=== PATIENT | female | born 1970 | race Caucasian/White ===

== ENCOUNTER 2021-05-03 19:48 | Emergency (ER) | payer BC ==
--- NOTE | 2021-05-03 20:20 | ED ---
General Adult HPI - General Source: patient, RN notes reviewed, old records reviewed Mode of arrival: ambulatory Limitations: no limitations <Dashawn Villeda - Last Filed: 05/03/21 20:46> <Dashawn Wellington - Last Filed: 05/04/21 00:46> - General Chief complaint: Chest Pain Stated complaint: Chest Pain Time Seen by Provider: 05/03/21 19:55 - History of Present Illness Initial comments: Is a 50-year-old female with past medical history significant for smoking and she states she is borderline diabetic. Patient states she started having upper left back pain that radiated around the shoulder into the chest but it only hurts if she takes a deep breath or cough. Patient states if she breathes normally she has no pain whatsoever. Patient states this started a few days ago. Patient denies any fever chills or cough. Patient denies having any COVID vaccine. Patient states she's not short of breath just hurts to breathe when she takes deep breath. Patient denies abdominal pain patient denies any vomi ting or diarrhea. Patient states occasionally she's been nauseous over the last couple days but not bad. Patient denies any palpitations. Patient denies any leg swelling or calf tenderness. Patient denies any long trips or travel. (Dashawn Villeda) - Related Data Allergies Allergy/AdvReac Type Severity Reaction Status Date / Time codeine Allergy Nausea & Verified 05/03/21 19:58 Vomiting Sulfa (Sulfonamide Allergy Swelling Verified 05/03/21 19:58 Antibiotics) Review of Systems ROS Other: All systems not noted in ROS Statement are negative. <Dashawn Villeda - Last Filed: 05/03/21 20:46> ROS Other: All systems not noted in ROS Statement are negative. <Dashawn Wellington - Last Filed: 05/04/21 00:46> ROS Statement: Those systems with pertinent positive or pertinent negative responses have been documented in the HPI. Past Medical History Past Medical History: No Reported History History of Any Multi-Drug Resistant Organisms: None Reported Past Surgical History: No Surgical Hx Reported Smoking Status: Current every day smoker Past Alcohol Use History: None Reported Past Drug Use History: None Reported <Dashawn Villeda - Last Filed: 05/03/21 20:46> General Exam Limitations: no limitations <Dashawn Villeda - Last Filed: 05/03/21 20:46> General appearance: alert, in no apparent distress Head exam: Present: atraumatic, normocephalic, normal inspection Eye exam: Present: normal appearance, PERRL, EOMI. Absent: scleral icterus, conjunctival injection, periorbital swelling ENT exam: Present: normal exam, mucous membranes moist Neck exam: Present: normal inspection. Absent: tenderness, meningismus, ly mphadenopathy Respiratory exam: Present: normal lung sounds bilaterally. Absent: respiratory distress, wheezes, rales, rhonchi, stridor Cardiovascular Exam: Present: regular rate, normal rhythm, normal heart sounds. Absent: systolic murmur, diastolic murmur, rubs, gallop, clicks GI/Abdominal exam: Present: soft, normal bowel sounds. Absent: distended, tenderness, guarding, rebound, rigid Extremities exam: Present: normal inspection, full ROM, normal capillary refill. Absent: tenderness, pedal edema, joint swelling, calf tenderness Back exam: Present: normal inspection Neurological exam: Present: alert, oriented X3, CN II-XII intact Psychiatric exam: Present: normal affect, normal mood Skin exam: Present: warm, dry, intact, normal color. Absent: rash <Dashawn Wellington - Last Filed: 05/04/21 00:46> - General Exam Comments Initial Comments: GENERAL: Patient is well-developed and well-nourished. Patient is nontoxic and well- hydrated and is in mild distress. ENT: Neck is soft and supple. No significant lymphadenopathy is noted. Oropharynx is clear. Moist mucous membranes. Neck has full range of motion without eliciting any pain. EYES: The sclera were anicteric and conjunctiva were pink and moist. Extraocular movements were intact and pupils were equal round and reactive to light. Eyelids were unremarkable. PULMONARY: Unlabored respirations. Good breath sounds bilaterally. No audible rales rho nchi or wheezing was noted. CARDIOVASCULAR: There is a regular rate and rhythm without any murmurs gallops or rubs. ABDOMEN: Soft and nontender with normal bowel sounds. SKIN: Skin is clear with no lesions or rashes and otherwise unremarkable. Patient's back pain is not reproducible. Patient can make it hurts if she takes deep breath only NEUROLOGIC: Patient is alert and oriented x3. Cranial nerves II through XII are grossly intact. Motor and sensory are also intact. Normal speech, volume and content. Symmetrical smile. MUSCULOSKELETAL: Normal extremities with adequate strength and full range of motion. LYMPHATICS: No significant lymphadenopathy is noted PSYCHIATRIC: Normal psychiatric evaluation. (Dashawn Vilelda) Pain is reproducible on the inferior lateral aspect of the left scapula (Dashawn Wellington) Course <Dashawn Wellington - Last Filed: 05/04/21 00:46> Vital Signs 05/03/21 05/03/21 05/03/21 19:56 20:47 21:57 Temperature 98.5 F Pulse Rate 114 H 104 H 95 Respiratory 19 20 18 Rate Blood Pressure 149/110 142/96 133/97 O2 Sat by Pulse 98 98 99 Oximetry 05/03/21 22:20 Temperature 98.3 F Pulse Rate 99 Respiratory 20 Rate Blood Pressure 127/92 O2 Sat by Pulse 97 Oximetry - Reevaluation(s) Reevaluation #1: 05/03/21 22:45 Medical record is reviewed Patient is informed of results and questions have been answered Patient refuses IV her pain medication Patient refusing computed tomography scan for possible cause of her chest pain, refusing admission for chest pain observation (Dashawn Wellington) Medical Decision Making <Dashawn Villeda - Last Filed: 05/03/21 20:46> - Lab Data Result diagrams: 05/03/21 20:43 05/03/21 20:43 - Radiology Data Radiology results: report reviewed (Chest x-rays negative for acute disease), image reviewed <Dashawn Wellington - Last Filed: 05/04/21 00:46> - Medical Decision Making EKG shows sinus tachycardia at 112 bpm AL interval is 148 QRS is 82 QT interval 320 QTC is 454. Patient's EKG shows no ST segment elevation or depression. Patient was signed out to Dr. Wellington at 9 PM and he will take over her care. (Dashawn Villeda) 50 female to be discharged home, nonspecific and atypical chest pain. EKG chest x-ray and troponin are negative here in the emergency department. (Dashawn Wellington) - Lab Data Lab Results 05/03/21 05/03/21 05/03/21 Range/Units 20:43 20:43 20:43 WBC 9.3 (3.8-10.6) k/uL RBC 4.84 (3.80-5.40) m/uL Hgb 15.5 (11.4-16.0) gm/dL Hct 45.4 (34.0-46.0) % MCV 93.8 (80.0-100.0) fL MCH 32.1 (25.0-35.0) pg MCHC 34.2 (31.0-37.0) g/dL RDW 12.9 (11.5-15.5) % Plt Count 295 (150-450) k/uL MPV 7.2 Neutrophils % 51 % Lymphocytes % 40 % Monocytes % 5 % Eosinophils % 1 % Basophils % 0 % Neutrophils # 4.7 (1.3-7.7) k/uL Lymphocytes # 3.7 (1.0-4.8) k/uL Monocytes # 0.5 (0-1.0) k/uL Eosinophils # 0.1 (0-0.7) k/uL Basophils # 0.0 (0-0.2) k/uL PT 10.2 (9.0-12.0) sec INR 0.9 (<1.2) APTT 23.1 (22.0-30.0) sec D-Dimer <0.17 (<0.60) mg/L FEU Sodium 139 (137-145) mmol/L Potassium 3.8 (3.5-5.1) mmol/L Chloride 107 (98-107) mmol/L Carbon Dioxide 23 (22-30) mmol/L Anion Gap 9 mmol/L BUN 17 (7-17) mg/dL Creatinine 0.72 (0.52-1.04) mg/dL Est GFR (CKD-EPI)AfAm >90 (>60 ml/min/1.73 sqM) Est GFR (CKD-EPI)NonAf >90 (>60 ml/min/1.73 sqM) Glucose 121 H (74-99) mg/dL Calcium 10.9 H (8.4-10.2) mg/dL Magnesium 2.0 (1.6-2.3) mg/dL Total Bilirubin 0.3 (0.2-1.3) mg/dL AST 26 (14-36) U/L ALT 18 (4-34) U/L Alkaline Phosphatase 110 (38-126) U/L Troponin I (0.000-0.034) ng/mL Total Protein 7.0 (6.3-8.2) g/dL Albumin 4.5 (3.5-5.0) g/dL Coronavirus (PCR) (Not Detectd) 05/03/21 05/03/21 Range/Units 20:43 20:43 WBC (3.8-10.6) k/uL RBC (3.80-5.40) m/uL Hgb (11.4-16.0) gm/dL Hct (34.0-46.0) % MCV (80.0-100.0) fL MCH (25.0-35.0) pg MCHC (31.0-37.0) g/dL RDW (11.5-15.5) % Plt Count (150-450) k/uL MPV Neutrophils % % Lymphocytes % % Monocytes % % Eosinophils % % Basophils % % Neutrophils # (1.3-7.7) k/uL Lymphocytes # (1.0-4.8) k/uL Monocytes # (0-1.0) k/uL Eosinophils # (0-0.7) k/uL Basophils # (0-0.2) k/uL PT (9.0-12.0) sec INR (<1.2) APTT (22.0-30.0) sec D-Dimer (<0.60) mg/L FEU Sodium (137-145) mmol/L Potassium (3.5-5.1) mmol/L Chloride (98-107) mmol/L Carbon Dioxide (22-30) mmol/L Anion Gap mmol/L BUN (7-17) mg/dL Creatinine (0.52-1.04) mg/dL Est GFR (CKD-EPI)AfAm (>60 ml/min/1.73 sqM) Est GFR (CKD-EPI)NonAf (>60 ml/min/1.73 sqM) Glucose (74-99) mg/dL Calcium (8.4-10.2) mg/dL Magnesium (1.6-2.3) mg/dL Total Bilirubin (0.2-1.3) mg/dL AST (14-36) U/L ALT (4-34) U/L Alkaline Phosphatase (38-126) U/L Troponin I <0.012 (0.000-0.034) ng/mL Total Protein (6.3-8.2) g/dL Albumin (3.5-5.0) g/dL Coronavirus (PCR) Not Detected (Not Detectd) Disposition <Dashawn Villeda - Last Filed: 05/03/21 20:46> Is patient prescribed a controlled substance at d/c from ED?: No <Dashawn Wellington - Last Filed: 05/04/21 00:46> Clinical Impression: Chest pain Disposition: HOME SELF-CARE Condition: Good Instructions (If sedation given, give patient instructions): Chest Pain (ED) Referrals: Hannah Hoover MD [Primary Care Provider] - 1-2 days
[2021-05-03 20:55] LABS: Basophils % (A) 0 %; Eosinophils # (A) 0.1 k/uL (0-0.7); Eosinophils % (A) 1 %; HCT 45.4 % (34.0-46.0); HGB 15.5 gm/dL (11.4-16.0); Lymphocytes # (A) 3.7 k/uL (1.0-4.8); Lymphocytes % (A) 40 %; MCH 32.1 pg (25.0-35.0); MCHC 34.2 g/dL (31.0-37.0); MCV 93.8 fL (80.0-100.0); Mean Platelet Volume 7.2; Monocytes # (A) 0.5 k/uL (0-1.0); Monocytes % (A) 5 %; Neutrophils # (A) 4.7 k/uL (1.3-7.7); Neutrophils % (A) 51 %; Platelet Count 295 k/uL (150-450); RBC 4.84 m/uL (3.80-5.40); RDW 12.9 % (11.5-15.5); WBC 9.3 k/uL (3.8-10.6)
[2021-05-03 21:08] LABS: INR 0.9 (<1.2); Partial Thromboplastin Time 23.1 sec (22.0-30.0); Prothrombin Time 10.2 sec (9.0-12.0)
[2021-05-03 21:11] LABS: ALT 18 U/L (4-34); AST 26 U/L (14-36); African American GFR (CKD) >90 (>60 ml/min/1.73 sqM); Albumin 4.5 g/dL (3.5-5.0); Alkaline Phosphatase 110 U/L (38-126); Anion Gap 9 mmol/L; Blood Urea Nitrogen 17 mg/dL (7-17); Calcium 10.9 mg/dL (8.4-10.2); Carbon Dioxide 23 mmol/L (22-30); Chloride 107 mmol/L (98-107); Glucose 121 mg/dL (74-99); Non-African American GFR(CKD) >90 (>60 ml/min/1.73 sqM); Potassium 3.8 mmol/L (3.5-5.1); Sodium 139 mmol/L (137-145); Total Bilirubin 0.3 mg/dL (0.2-1.3)
--- NOTE | 2021-05-03 21:28 | XR ---
EXAMINATION: XR chest 2V DATE AND TIME: 05/03/2021 8:53 PM CLINICAL INDICATION: PHH; Chest Pain TECHNIQUE: PA and lateral COMPARISON: None FINDINGS: The lungs are clear. The pleural spaces are negative. The cardiac silhouette is not enlarged. The remainder of the mediastinal silhouette is unremarkable. The skeletal structures and soft tissues are negative for acute findings. IMPRESSION: NO ACUTE PROCESS.
[2021-05-03 23:02] VITALS: BP 127/92; PULSE 99; RESP 20; TEMP 98.3
== END 2021-05-03 22:20 | disposition home or self-care (01) ==
LOC: EC 19:48
DX: R07.9 Chest pain, unspecified (principal); M54.6 Pain in thoracic spine; F17.200 Nicotine dependence, unspecified, uncomplicated; Z20.822 Contact with and (suspected) exposure to COVID-19
CPT/HCPCS: 36415; 71046; 80053; 83735; 84484; 85025; 85379; 85610; 85730; 87635; 93005; 99285